=== PATIENT | male | born 1985 | race Hispanic/Latino ===

== ENCOUNTER 2019-08-17 08:16 | Emergency (ER) | payer BC ==
--- NOTE | 2019-08-17 09:14 | ER ---
Nurse's Notes [facility] Name: Sea Franz Age: 33 yrs Sex: Male : 1985 Arrival Date: 08/17/2019 Time: 08:20 Bed 15 Private MD: Diagnosis: Viral infection, unspecified Presentation: 08/16 08:40 Initial Sepsis Screen: Does the patient meet any 2 criteria? No. Patient's initial rb1 sepsis screen is negative. Does the patient have a suspected source of infection? No. Patient's initial sepsis screen is negative. Risk Assessment: Do you want to hurt yourself or someone else? Patient reports no desire to harm self or others. Onset of symptoms was August 15, 2019. 08:49 Chief complaint: Patient states: nausea started on Sunday, chills and fatigue iw yesterday, diarrhea today, pt is a manager contracting, last tested for COVID 2 months ago and was negative. 08:49 Method Of Arrival: Ambulatory iw 08:53 Coronavirus screen: Surgical mask placed on patient. Patient moved to private room, iw placed in contact and droplet isolation with eye protection until further assessment. Patient denies a cough. Patient denies shortness of breath or difficulty breathing. Patient denies measured and/or subjective temperature greater than 100.4F prior to today's visit. Patient denies travel on a cruise ship or to a country the [facility] currently lists as an affected area. Patient denies contact with known and/or suspected case of COVID-19. Ebola Screen: Patient negative for fever greater than or equal to 101.5 degrees Fahrenheit, and additional compatible Ebola Virus Disease symptoms Patient denies exposure to infectious person. Patient denies travel to an Ebola-affected area in the 21 days before illness onset. No symptoms or risks identified at this time. 08:53 Acuity: JESSENIA 4 iw Historical: - Allergies: 08:57 No Known Allergies; iw - Home Meds: 08:57 Metformin Oral [Active]; insulin [Active]; Albuterol Inhl [Active]; iw - PMHx: 08:57 Diabetes - IDDM; Asthma; iw - PSHx: 08:57 None; iw - Immunization history:: Adult Immunizations up to date. - Social history:: Smoking status: Patient denies any tobacco usage or history of. Screenin:40 Abuse screen: Denies threats or abuse. Nutritional screening: No deficits noted. rb1 Tuberculosis screening: No symptoms or risk factors identified. Fall Risk None identified. Assessment: 08:40 General: Appears in no apparent distress. Behavior is calm, cooperative. General: rb1 Reports chills for fatigue for 2-3 days. Pain: Complains of pain in abdomen. Neuro: Level of Consciousness is awake, alert, obeys commands, Oriented to person, place, time, situation. Cardiovascular: Capillary refill < 3 seconds. Respiratory: Airway is patent Respiratory effort is even, unlabored, Respiratory pattern is regular, symmetrical. GI: Reports diarrhea, nausea. : No signs and/or symptoms were reported regarding the genitourinary system. EENT: Reports sore throat. Derm: Skin is pink, warm \T\ dry. 09:28 Reassessment: Patient appears in no apparent distress at this time. No changes from rb1 previously documented assessment. Vital Signs: 08:53 BP 121 / 91; Pulse 100; Resp 16 S; Temp 98.6; Pulse Ox 100% on R/A; Weight 117.93 kg; iw Height 6 ft. 1 in. (185.42 cm); 09:28 BP 122 / 88; Pulse 93; Resp 17; Pulse Ox 99% ; rb1 08:53 Body Mass Index 34.30 (117.93 kg, 185.42 cm) iw ED Course: 08:20 Patient arrived in ED. as 08:21 Chase Schuler MD is Attending Physician. rn 08:32 Gene Luna PA is PHCP. jr8 08:36 Kirstin Franks, RN is Primary Nurse. rb1 08:40 Patient has correct armband on for positive identification. Bed in low position. Call rb1 light in reach. Side rails up X 1. Pulse ox on. NIBP on. 08:54 Triage completed. iw 08:57 Arm band placed on. iw 09:56 No provider procedures requiring assistance completed. Patient did not have IV access iw during this emergency room visit. Administered Medications: No medications were administered Outcome: 09:13 Discharge ordered by . jr8 09:56 Discharged to home ambulatory. iw 09:56 Condition: good 09:56 Discharge instructions given to patient, Instructed on discharge instructions, follow up and referral plans. Demonstrated understanding of instructions, follow-up care. 09:56 Patient left the ED. iw Addendum: 08/20/2019 10:27 Addendum: COVID-19 Result: Positive result giiven to ED physician to notify pt. i w Physician: Chase Schuler MD Physician was able to contact pt and pt was notified of positive COVID-19 swab result. Physician answered pt questions. Signatures: Julisa Negrete Irene, RN RN Chase Schuler MD MD rn Roszak, Josh, PA PA jr8 Kirstin Franks RN RN rb1
--- NOTE | 2019-08-17 09:14 | EDPHYS ---
Physician Documentation [facility] Name: Sea Franz Age: 33 yrs Sex: Male : 1985 Arrival Date: 08/17/2019 Time: 08:20 Bed 15 Private MD: ED Physician Chase Schuler HPI: 08/16 09:14 This 33 yrs old Male presents to ER via Ambulatory with complaints of jr8 Diarrhea, Fatigue. 09:14 The patient presents to the emergency department with diarrhea. Onset: The jr8 symptoms/episode began/occurred acutely, yesterday. Possible causes: unknown. The symptoms are aggravated by nothing. The symptoms are alleviated by nothing. Associated signs and symptoms: Pertinent positives: fatigue. Severity of symptoms: At their worst the symptoms were mild in the emergency department the symptoms are unchanged. The patient has not experienced similar symptoms in the past. The patient has not recently seen a physician. 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 Denies fevers, cough, shortness of breath . Historical: - Allergies: 08:57 No Known Allergies; iw - Home Meds: 08:57 Metformin Oral [Active]; insulin [Active]; Albuterol Inhl [Active]; iw - PMHx: 08:57 Diabetes - IDDM; Asthma; iw - PSHx: 08:57 None; iw - Immunization history:: Adult Immunizations up to date. - Social history:: Smoking status: Patient denies any tobacco usage or history of. ROS: 09:14 Eyes: Negative for injury, pain, redness, and discharge, ENT: Negative for injury, jr8 pain, and discharge, Neck: Negative for injury, pain, and swelling, Cardiovascular: Negative for chest pain, palpitations, and edema, Respiratory: Negative for shortness of breath, cough, wheezing, and pleuritic chest pain, Back: Negative for injury and pain, MS/Extremity: Negative for injury and deformity, Skin: Negative for injury, rash, and discoloration, Neuro: Negative for headache, weakness, numbness, tingling, and seizure. 09:14 Constitutional: Positive for fatigue. 09:14 Abdomen/GI: Positive for diarrhea, Negative for abdominal pain, nausea and vomiting. Exam: 09:14 Eyes: Pupils equal round and reactive to light, extra-ocular motions intact. Lids and jr8 lashes normal. Conjunctiva and sclera are non-icteric and not injected. Cornea within normal limits. Periorbital areas with no swelling, redness, or edema. ENT: Nares patent. No nasal discharge, no septal abnormalities noted. Tympanic membranes are normal and external auditory canals are clear. Oropharynx with no redness, swelling, or masses, exudates, or evidence of obstruction, uvula midline. Mucous membranes moist. Neck: Trachea midline, no thyromegaly or masses palpated, and no cervical lymphadenopathy. Supple, full range of motion without nuchal rigidity, or vertebral point tenderness. No Meningismus. Cardiovascular: Regular rate and rhythm with a normal S1 and S2. No gallops, murmurs, or rubs. Normal PMI, no JVD. No pulse deficits. Respiratory: Lungs have equal breath sounds bilaterally, clear to auscultation and percussion. No rales, rhonchi or wheezes noted. No increased work of breathing, no retractions or nasal flaring. Abdomen/GI: Soft, non-tender, with normal bowel sounds. No distension or tympany. No guarding or rebound. No evidence of tenderness throughout. Back: No spinal tenderness. No costovertebral tenderness. Full range of motion. Skin: Warm, dry with normal turgor. Normal color with no rashes, no lesions, and no evidence of cellulitis. MS/ Extremity: Pulses equal, no cyanosis. Neurovascular intact. Full, normal range of motion. Neuro: Awake and alert, GCS 15, oriented to person, place, time, and situation. Cranial nerves II-XII grossly intact. Motor strength 5/5 in all extremities. Sensory grossly intact. Cerebellar exam normal. Normal gait. Vital Signs: 08:53 BP 121 / 91; Pulse 100; Resp 16 S; Temp 98.6; Pulse Ox 100% on R/A; Weight 117.93 kg; iw Height 6 ft. 1 in. (185.42 cm); 09:28 BP 122 / 88; Pulse 93; Resp 17; Pulse Ox 99% ; rb1 08:53 Body Mass Index 34.30 (117.93 kg, 185.42 cm) iw MDM: 08:21 Patient medically screened. rn 09:13 Data reviewed: vital signs, nurses notes, lab test result(s), and as a result, I will jr8 discharge patient. Data interpreted: Pulse oximetry: on room air is 100 %. Interpretation: normal. Counseling: I had a detailed discussion with the patient and/or guardian regarding: the historical points, exam findings, and any diagnostic results supporting the discharge/admit diagnosis, lab results, the need for outpatient follow up, a family practitioner, to return to the emergency department if symptoms worsen or persist or if there are any questions or concerns that arise at home. 09:16 ED course: Patient hemodynamically stable without acute findings on physical exam. Safe jr8 to go home and isolate. Knows to come back if worse . 08/16 08:53 Order name: COVID-19 jr8 Administered Medications: No medications were administered Disposition: 09:57 Co-signature as Attending Physician, Chase Schuler MD. rn Disposition: 08/17/19 09:13 Discharged to Home. Impression: Viral infection, unspecified. - Condition is Stable. - Discharge Instructions: Viral Respiratory Infection, Form - Return To Work, COVID-19. - Work release form, Medication Reconciliation Form, Thank You Letter, Antibiotic Education, Prescription Opioid Use form. - Follow up: Private Physician; When: 1 week; Reason: Recheck today's complaints, Continuance of care, Re-evaluation by your physician. - Problem is new. - Symptoms are unchanged. Addendum: 08/20/2019 09:15 Addendum: Called patient and contacted \T\ 0915 to notify of COVID-19 positive results. rn Feels better, questions answered, and told health department would contact for further recommendations. . Signatures: Dispatcher [employer] Peyton Rios RN RN iw Nieto, Roman, MD MD rn Roszak, Josh, PA PA jr8 Corrections: (The following items were deleted from the chart) 08/16 09:15 09:14 This 33 yrs old Male presents to ER via Ambulatory with complaints of jr8 Abdominal Pain, Sore Throat, Fatigue. jr8 09:56 09:13 08/17/2019 09:13 Discharged to Home. Impression: Viral infection, unspecified. iw Condition is Stable. Forms are Medication Reconciliation Form, Thank You Letter, Antibiotic Education, Prescription Opioid Use. Follow up: Private Physician; When: 1 week; Reason: Recheck today's complaints, Continuance of care, Re-evaluation by your physician. Problem is new. Symptoms are unchanged. jr8
[2019-08-17 10:01] VITALS: BP 121/91; TEMP 98.6; O2SAT 100
== END 2019-08-17 09:56 | disposition home or self-care (01) ==
LOC: ER 08:16
DX: U07.1 COVID-19 (principal); B34.9 Viral infection, unspecified; J45.909 Unspecified asthma, uncomplicated; E11.9 Type 2 diabetes mellitus without complications; Z79.4 Long term (current) use of insulin
CPT/HCPCS: 99283; U0001